=== PATIENT | male | born 1965 | race Caucasian/White ===

== ENCOUNTER 2023-03-06 08:06 | Day surgery (SDC) | payer OTHER, SELFPAY ==
[2023-01-20 13:04] VITALS: BMI 30.5
[2023-02-19 09:51] VITALS: BMI 30.7
--- NOTE | 2023-03-06 08:22 | WPDANESEPPF ---
Anes - Initial Pre Proc Eval Procedure: Operation Date: 03/06/23 10:00 Proposed Procedures p Screening Colonoscopy - Leo Dorman MD Date/Time: 03/06/23 08:22 Surgeon: Leo Dorman MD Pre Op Diagnosis: Neoplasm Screening Patient Data Age: 58 Gender: M Height: 1.78 m Weight: 97 kg Allergies Allergy/AdvReac Type Severity Reaction Status Date / Time No Known Allergies Allergy Mild Unverified 03/06/23 08:49 Home Medications Medication Instructions Recorded Confirmed Type aspirin 81 mg tablet,delayed 81 mg PO DAILY 09/04/22 03/06/23 History release (Adult Low Dose Aspirin) cholecalciferol (vitamin D3) 125 125 mcg PO DAILY 09/04/22 03/06/23 History mcg (5,000 unit) capsule cyanocobalamin (vitamin B-12) 2,500 mcg sublingual DAILY 09/04/22 03/06/23 History 2,500 mcg sublingual tablet omega 6-rlm-qxj-fish oil 100 1 cap PO DAILY 09/04/22 03/06/23 History mg-160 mg-1,000 mg capsule (Fish Oil) allopurinol 300 mg tablet 300 mg PO DAILY #90 tabs 10/10/22 03/06/23 Rx amlodipine 10 mg-benazepril 20 mg 1 cap PO DAILY #90 caps 10/10/22 03/06/23 Rx capsule atorvastatin 10 mg tablet 10 mg PO QHS #90 tabs 10/10/22 03/06/23 Rx indapamide 2.5 mg tablet 2.5 mg PO DAILY #90 tabs 10/10/22 03/06/23 Rx metformin 500 mg tablet,extended 1,000 mg PO BID #360 tabs 10/10/22 03/06/23 Rx release 24hr metoprolol succinate 50 mg 50 mg PO DAILY #90 tabs 10/10/22 03/06/23 Rx tablet,extended release 24 hr semaglutide 1 mg/dose (4 mg/3 mL) 1 mg (0.75 mL) subcut WEEKLY #9 mL 12/25/22 03/06/23 Rx subcutaneous pen injector (Ozempic) sodium,potassium,mag sulfates 17.5 See Rx Instructions PO .COMPLEX 01/20/23 03/06/23 Rx gram-3.13 gram-1.6 gram oral soln #354 mL (Suprep Bowel Prep Kit) sildenafil 50 mg tablet 50 mg PO DAILY PRN sexual activity 02/13/23 03/06/23 Rx #9 tabs Patient hx anesthesia problems: none Family hx anesthesia problems: none Results Review: All pre-operative results and documents have been reviewed as part of the pre-operative evaluation. [facility] Past Medical History Medical History Diabetes Gout HTN (hypertension) Hypercholesterolemia Hypogonadism Vitamin D deficiency Family History Family History Mother Heart disease Acute myocardial infarction Diabetes mellitus Hypertension Father Hypertension Sibling Diabetes mellitus Hypertension Social History Social History Smoking status: Never smoker Smoking end date: 10/20/04 Alcohol intake: current Drinks per week: 2 Alcohol use details: 1-2 x week Substance use: never Substance use type: does not use Living arrangements: with family Occupation/Education: retired Gender identity (if verbalized by the patient): Male Spiritual care concerns: No Anes - Eval Final PreProcedure Day of Procedure 03/06/23 08:22 Patient weight: obese Heart: regular rate and rhythm Lungs: clear to auscultation Airway: Mallampati scale class III Neurological: alert and oriented Last oral intake: >/= 8 hours ASA classification: III Emergent: no Anesthetic plan: proceed Anesthesia type and monitoring: general GIVS and standard monitoring Results Review: All pre-operative results and documents have been reviewed as part of the pre-operative evaluation. Informed Consent: The patient's anesthetic plan and its attendant risks and benefits were discussed with the patient/family/POA. Questions were solicited and answers provided to the satisfaction of the patient/family/POA.
[2023-03-06 08:40] VITALS: BP 171/99; PULSE 103; RESP 20; TEMP 36.7; O2SAT 96
[2023-03-06 09:05] LABS: Glucose Point of Care 171 mg/dl (65-105)
[2023-03-06] MEDS: LACTATED RINGERS 1,000 ML 150 ML IV CONT (09:05)
--- NOTE | 2023-03-06 09:13 | PM.HPGS ---
History of Present Illness History of Present Illness Consent: Risks, benefits, and alternatives have been discussed and questions answered. Patient agrees to proceed with procedure. Chief complaint: Neoplasm Screening Narrative: Amos Perales is a 58 year old male Presents for screening colonoscopy. Patient's current weight appetite bowel movements are normal. Patient denies abdominal pain. He has had no bleeding. Family history noncontributory. Review of Systems Review of Systems: Review of systems noncontributory. [facility] Past Medical History Medical History Diabetes Gout HTN (hypertension) Hypercholesterolemia Hypogonadism Vitamin D deficiency Family History Family History Mother Heart disease Acute myocardial infarction Diabetes mellitus Hypertension Father Hypertension Sibling Diabetes mellitus Hypertension Social History Social History Smoking status: Never smoker Smoking end date: 10/20/04 Alcohol intake: current Drinks per week: 2 Alcohol use details: 1-2 x week Substance use: never Substance use type: does not use Living arrangements: with family Occupation/Education: retired Gender identity (if verbalized by the patient): Male Spiritual care concerns: No Meds Home Medications and Allergies Home Medications Medication Instructions Recorded Confirmed Type aspirin 81 mg tablet,delayed 81 mg PO DAILY 09/04/22 03/06/23 History release (Adult Low Dose Aspirin) cholecalciferol (vitamin D3) 125 125 mcg PO DAILY 09/04/22 03/06/23 History mcg (5,000 unit) capsule cyanocobalamin (vitamin B-12) 2,500 mcg sublingual DAILY 09/04/22 03/06/23 History 2,500 mcg sublingual tablet omega 3-hyd-nbm-fish oil 100 1 cap PO DAILY 09/04/22 03/06/23 History mg-160 mg-1,000 mg capsule (Fish Oil) allopurinol 300 mg tablet 300 mg PO DAILY #90 tabs 10/10/22 03/06/23 Rx amlodipine 10 mg-benazepril 20 mg 1 cap PO DAILY #90 caps 10/10/22 03/06/23 Rx capsule atorvastatin 10 mg tablet 10 mg PO QHS #90 tabs 10/10/22 03/06/23 Rx indapamide 2.5 mg tablet 2.5 mg PO DAILY #90 tabs 10/10/22 03/06/23 Rx metformin 500 mg tablet,extended 1,000 mg PO BID #360 tabs 10/10/22 03/06/23 Rx release 24hr metoprolol succinate 50 mg 50 mg PO DAILY #90 tabs 10/10/22 03/06/23 Rx tablet,extended release 24 hr semaglutide 1 mg/dose (4 mg/3 mL) 1 mg (0.75 mL) subcut WEEKLY #9 mL 12/25/22 03/06/23 Rx subcutaneous pen injector (Ozempic) sodium,potassium,mag sulfates 17.5 See Rx Instructions PO .COMPLEX 01/20/23 03/06/23 Rx gram-3.13 gram-1.6 gram oral soln #354 mL (Suprep Bowel Prep Kit) sildenafil 50 mg tablet 50 mg PO DAILY PRN sexual activity 02/13/23 03/06/23 Rx #9 tabs Allergies Allergy/AdvReac Type Severity Reaction Status Date / Time No Known Allergies Allergy Mild Unverified 03/06/23 08:49 Vital Signs Vital Signs - 24 hr 03/06/23 08:40 Temperature 98.0 F Pulse Rate 103 H Respiratory Rate 20 Blood Pressure 171/99 H Pulse Oximetry 96 Oxygen Delivery Room Air Exam Narrative: Physical exam reveals patient to be alert. Vital signs stable. HEENT exam is unremarkable. Patient is anicteric. Lungs are clear to auscultation and percussion. Heart is without murmur or extra sounds. Abdomen bowel sounds are present soft nontender with no organomegaly. Digital external rectal exam is normal. Assessment and Plan Assessment and plan (1) Screening for colon cancer: Code(s): Z12.11 - Encounter for screening for malignant neoplasm of colon Status: Acute Assessment and Plan: Patient prefers presents for colon cancer screening colonoscopy. Appears to be at average risk for colon polyps. Further recommendations may be given after endoscopy.
[2023-03-06] MEDS: SIMETHICONE ORAL SUSPENSION 20 MG/0.3 ML 30 ML BOTTLE 0.6 ML IRRIGATION (10:50)
[2023-03-06 10:57] VITALS: BP 122/80; PULSE 94; RESP 18; O2SAT 96
[2023-03-06 11:07] VITALS: BP 139/94; PULSE 92; RESP 16; O2SAT 97
[2023-03-06 11:17] VITALS: BP 132/94; PULSE 87; RESP 16; O2SAT 97
--- NOTE | 2023-03-06 12:56 | WPDANESPN ---
Anes - Prog Note Post-Op Date/Time: 03/06/23 12:56 Cardiovascular status: normal Respiratory status: normal Airway patency: baseline Mental status: baseline Post-Op hydration status: normal Vital Signs: Last Vital Signs Temp 36.7 C 03/06/23 08:40 Pulse 87 03/06/23 11:17 Resp 16 03/06/23 11:17 BP 132/94 H 03/06/23 11:17 Pulse Ox 97 03/06/23 11:17 O2 Del Method Room Air 03/06/23 11:17 Pain Score (VAS): 0 I/O: Intake & Output 03/05/23 03/06/23 03/06/23 23:59 07:59 15:59 Intake Total 700 Balance 700 03/06/23 09:01 POC Capillary Glucose 171 H Post-procedural complaints: none Patient Feedback: Patient satisfied with anesthetic care. Other Findings: Patient vital signs back to baseline. Patient denies nausea and vomiting. Patient's pain under control. Patient OK for discharge.
== END 2023-03-06 11:53 | disposition home or self-care (01) ==
PROVIDERS: PCP Physician Assistant Medical; Visit Provider Internal Medicine Gastroenterology
PROC: 0DJD8ZZ Inspection of Lower Intestinal Tract, Via Natural or Artificial Opening Endoscopic (ICD-10-PCS; CPT 45378; principal; 2023-03-06 10:00)
DX: Z12.11 Encounter for screening for malignant neoplasm of colon (principal)
CPT/HCPCS: 45378